=== PATIENT | female | born 1970 | race Caucasian/White ===

== ENCOUNTER → 2016-07-11 | Outpatient (CLI) | payer OTHER ==
[~2016-07-11] MED LIST: ALBUTEROL INHALER; BUDE6HFA; CPR250T; CPR500T
--- NOTE | 2016-07-11 13:38 | Diagnostic Imaging Report ---
PROCEDURE: US Thyroid. TECHNIQUE: Multiple real-time grayscale images were obtained of the thyroid in various projections. INDICATION: Followup anterior neck fullness. COMPARISON: 03/20/2016. DISCUSSION: The thyroid gland is normal in echotexture and size. The right thyroid measures 4.1 x 1.4 x 1.4 cm. The left thyroid measures 3.7 x 1.5 x 1.2 cm. A 3 mm hypoechoic solid-appearing nodule within the inferior right thyroid lobe is stable. Nodule is too small to further characterize. Recommend one-year sonographic followup. No other or new nodule is identified. No abnormal adjacent lymph nodes are identified. IMPRESSION: 1. A 3 mm hypoechoic nodule within the right thyroid gland is stable though too small to further characterize. Recommend one-year sonographic followup. Dictated by: Dictated on workstation # [id number]
== END ==
LOC: RAD 12:13
PROVIDERS: ATTEND Nurse Practitioner Family
DX: E04.1 Nontoxic single thyroid nodule (principal)
CPT/HCPCS: 76536

== ENCOUNTER → 2017-05-14 | Outpatient (CLI) | payer SELFPAY ==
--- NOTE | 2017-05-14 18:12 | Diagnostic Imaging Report ---
PROCEDURE: MR imaging cervical spine without contrast. TECHNIQUE: Multiplanar, multisequence MR imaging of the cervical spine was performed without contrast. INDICATION: Neck pain and left arm pain. COMPARISON: None available. FINDINGS: Normal alignment of the cervical spine. No fracture or marrow replacing process. No active facet synovitis. Cervical cord is normal in size and signal. Specifically, no myelomalacia or cord edema. Cerebellar tonsils are normal in configuration. C2-C3: Normal. C3-C4: Normal. C4-C5: Minimal disc bulge partially effaces the ventral thecal sac and causes mild spinal stenosis. No neuroforaminal narrowing. C5-C6: Central and bilateral paracentral disc bulge which effaces the ventral thecal sac causing mild spinal stenosis. There is no mass effect on the cord. No neuroforaminal narrowing. C6-C7: Normal. C7-T1: Normal. IMPRESSION: 1. No fracture or malalignment. 2. Normal cervical cord. 3. Disc bulges at C4-C5 and C5-C6 cause mild spinal stenosis but no mass effect on the cord. Dictated by: Dictated on workstation # [id number]
== END ==
LOC: RAD 17:29
PROVIDERS: ATTEND Nurse Practitioner Family
DX: M50.20 Other cervical disc displacement, unspecified cervical region (principal)
CPT/HCPCS: 72141